=== PATIENT | female | born 1995 | race African-American/Black ===

== ENCOUNTER 2018-12-27 05:40 | Inpatient (IN) | payer BC ==
[~2018-12-27] VITALS: Ht 175.3 cm; Wt 88.0 kg
[~2018-12-27 05:40] MED LIST: EXPECTA PRENAT1 EACH PO; PEPCID20 MG PO
--- NOTE | 2018-12-27 12:22 | PR ---
[facility] [address] [place], [place] [address] Signed Progress Notes IP Datetime Report Generated by CPN: 12/27/2018 12:21 PROGRESS NOTES: [id number] Impression: Normal progression of labor Procedures: Artificial ROM Plan: Continue present management; Anesthesia consult Informed Consent Obtain: Vaginal Delivery; Risks, Benefits and Alternatives Discussed VITAL SIGNS: [id number] Vital Signs: Reviewed; Within Normal Limits EXAM: [id number] Dilatation: 4.0 Effacement: 70 Station: -2 Uterine Contractions: irregular MEMBRANES: [id number] Membrane Status: Intact Comments: Doing well. Epidural prn. Fetus A: [id number] FHR Baseline: 140 Variability: Moderate 6-25bpm Accelerations: 15X15 Decelerations: None FHR Category: Category I Presentation: Vertex Comments on Fetus A: No evidence of metabolic acidosis Fetus B: [id number] Signing Physician: Desirae Worrell MD Copies: ~ *Electronically Signed* 12/27/18 1221 DESIRAE WORRELL MD PATIENT NAME: JAYSON SYLVESTER PROGRESS NOTE DATE OF : 93 PHYSICIAN: DESIRAE WORRELL MD RPT #: [id number] REPORT IS CONFIDENTIAL AND NOT TO BE RELEASED WITHOUT AUTHORIZATION
--- NOTE | 2018-12-27 17:16 | PR ---
[facility] [address] [place], [place] [address] Signed Progress Notes IP Datetime Report Generated by DIAMOND: 12/27/2018 17:16 PROGRESS NOTES: [id number] Impression: Slow Progression of Labor Procedures: Intrauterine Pressure Catheter; Scalp Electrode Plan: Continue present management Informed Consent Obtain: Vaginal Delivery; Risks, Benefits and Alternatives Discussed VITAL SIGNS: [id number] Vital Signs: Reviewed; Within Normal Limits EXAM: [id number] Dilatation: 5.0 Effacement: 80 Station: -2 Uterine Contractions: q 2 to 3 min MEMBRANES: [id number] Membrane Status: Intact ROM Note: Addendum: AROM with small amount of clear fluid Comments: Slow progress. Will place IUPC and FSE and increase pit as needed. Will proceed with more aggressive position changes as well. Fetus A: [id number] FHR Baseline: 130 Variability: Moderate 6-25bpm Accelerations: 15X15 Decelerations: Variable FHR Category: Category II Presentation: Vertex Comments on Fetus A: reassuring with mod variability and accels Fetus B: [id number] Signing Physician: Desirae Worrell MD Copies: ~ *Electronically Signed* 12/27/18 1716 DESIRAE WORRELL MD PATIENT NAME: JAYSON SYLVESTER PROGRESS NOTE DATE OF : 93 PHYSICIAN: DESIRAE WORRELL MD RPT #: [id number] REPORT IS CONFIDENTIAL AND NOT TO BE RELEASED WITHOUT AUTHORIZATION
--- NOTE | 2018-12-27 17:53 | PR ---
[facility] [address] [facility] [place], [place] [address] Signed Progress Notes IP Datetime Report Generated by CPN: 12/27/2018 17:52 PROGRESS NOTES: [id number] Impression: Normal progression of labor Procedures: Sterile Vag Exam Plan: Anesthesia consult Informed Consent Obtain: Vaginal Delivery; Risks, Benefits and Alternatives Discussed VITAL SIGNS: [id number] Vital Signs: Reviewed; Within Normal Limits EXAM: [id number] Dilatation: 7.0 Effacement: 90 Station: -2 Uterine Contractions: q 2 to 3 min MEMBRANES: [id number] Membrane Status: Intact ROM Note: Addendum: AROM with small amount of clear fluid Comments: Has window from epidural. Will rebolus. She is in a much better labor pattern at this time. Fetus A: [id number] FHR Baseline: 140 Variability: Moderate 6-25bpm Accelerations: 15X15 Decelerations: Variable FHR Category: Category II Presentation: Vertex Comments on Fetus A: good variability with accels--reassuring Fetus B: [id number] Signing Physician: Desirae Worrell MD Copies: ~ *Electronically Signed* 12/27/18 1231 DESIRAE WORRELL MD PATIENT NAME: JAYSON SYLVESTER PROGRESS NOTE DATE OF : 93 PHYSICIAN: DESIRAE WORRELL MD RPT #: [id number] REPORT IS CONFIDENTIAL AND NOT TO BE RELEASED WITHOUT AUTHORIZATION
--- NOTE | 2018-12-28 09:59 | PR ---
[facility] [address] [facility] [place], [place] [address] Signed PP Progress Notes Datetime Report Generated by CPN: 12/28/2018 09:58 SUBJECTIVE: [id number] Pain: Within normal limits Vital Signs: [id number] Vital Signs: Reviewed; Within Normal Limits EXAM: [id number] Cardiovascular: Not Done Respiratory: Not Done Abdomen/Uterus: Abnormal Lochia: Normal Vulva/Perineum: Not Done Breasts: Not Done CVA Tenderness: Not Done Extremities: Normal Incision: Not Applicable Progress: Normal Exam Comments: Fundus firm, NT @ U-2. H/H 11.9/35.7, WBC 8.8, plat 128k IMPRESSION/PLAN/PROCEDURES: [id number] Impression: Normal progression Plan: Discharge Procedures: [place]ogam Progress Notes: Doing well. She desires D/C today. Signing Physician: Desirae Worrell MD Copies: ~ *Electronically Signed* 12/28/18 0958 DESIRAE WORRELL MD PATIENT NAME: JAYSON SYLVESTER PROGRESS NOTE DATE OF : 93 PHYSICIAN: DESIRAE WORRELL MD RPT #: [id number] REPORT IS CONFIDENTIAL AND NOT TO BE RELEASED WITHOUT AUTHORIZATION
== END 2018-12-28 19:00 | disposition home or self-care (01) | DRG 768 ==
LOC: FBCO → FBC 10:30
PROVIDERS: ADMIT Obstetrics & Gynecology
PROC: 10E0XZZ Delivery of Products of Conception, External Approach (ICD-10-PCS; principal; 2018-12-27)
PROC: 0UQG0ZZ Repair Vagina, Open Approach (ICD-10-PCS; 2018-12-27)
PROC: 0UQMXZZ Repair Vulva, External Approach (ICD-10-PCS; 2018-12-27)
PROC: 10907ZC Drainage of Amniotic Fluid, Therapeutic from Products of Conception, Via Natural or Artificial Opening (ICD-10-PCS; 2018-12-27)
PROC: 10H07YZ Insertion of Other Device into Products of Conception, Via Natural or Artificial Opening (ICD-10-PCS; 2018-12-27)
PROC: 00HU33Z Insertion of Infusion Device into Spinal Canal, Percutaneous Approach (ICD-10-PCS; 2018-12-27)
PROC: 3E0R3BZ Introduction of Anesthetic Agent into Spinal Canal, Percutaneous Approach (ICD-10-PCS; 2018-12-27)
PROC: 3E0234Z Introduction of Serum, Toxoid and Vaccine into Muscle, Percutaneous Approach (ICD-10-PCS; 2018-12-28)
DX: O69.82X0 Labor and delivery complicated by other cord entanglement, without compression, not applicable or unspecified (principal); Z37.0 Single live birth; O71.4 Obstetric high vaginal laceration alone; O76 Abnormality in fetal heart rate and rhythm complicating labor and delivery; O26.893 Other specified pregnancy related conditions, third trimester; Z67.11 Type A blood, Rh negative; O71.82 Other specified trauma to perineum and vulva; Z86.59 Personal history of other mental and behavioral disorders; O99.62 Diseases of the digestive system complicating childbirth; K21.9 Gastro-esophageal reflux disease without esophagitis; Z79.899 Other long term (current) drug therapy; Z3A.40 40 weeks gestation of pregnancy
CPT/HCPCS: 36415; 59025; 83030; 85027; 86850; 86900; 86901; 99213; J2590; J2790; J2795; J3010; J7120

== ENCOUNTER 2022-11-21 23:29 | Inpatient (IN) | payer BC, OTHER ==
[2022-11-22 02:17] VITALS: BP 129/70
--- NOTE | 2022-11-23 09:05 | PR ---
[facility] [address] [facility] [place], [place] [address] Signed PP Progress Notes Datetime Report Generated by DIAMOND: 11/23/2022 09:05 SUBJECTIVE: [id number] Pain: Within Normal Limits Vital Signs: [id number] Vital Signs: Reviewed; Within Normal Limits Cardiovascular: Not Done Respiratory: Not Done Abdomen/Uterus: Abnormal Lochia: Normal Vulva/Perineum: Not Done Breasts: Not Done CVA Tenderness: Not Done Extremities: Normal Incision: Not Applicable Progress: Normal Exam Comments: Fundus firm NT @ U-1. H/H 04/24.7, WBC 6.1, plat 120k IMPRESSION/PLAN/PROCEDURES: [id number] Impression: Normal Progression Plan: Discharge Procedures: None Progress Notes: Doing well. Anemia which is well tolerated. She is ready for D/C. Signing Physician: Desirae Worrell MD Copies: ~ *Electronically Signed* 11/23/22 09 DESIRAE WORRELL MD PATIENT NAME: JAYSON SYLVESTER PROGRESS NOTE DATE OF : 93 PHYSICIAN: DESIRAE WORRELL MD RPT #: [id number] REPORT IS CONFIDENTIAL AND NOT TO BE RELEASED WITHOUT AUTHORIZATION
== END 2022-11-23 10:45 | disposition home or self-care (01) | DRG 807 ==
LOC: FBCO 23:29 → FBC 11-22 00:30
PROVIDERS: ADMIT Obstetrics & Gynecology; ATTEND Obstetrics & Gynecology
PROC: 10E0XZZ Delivery of Products of Conception, External Approach (ICD-10-PCS; principal; 2022-11-22)
PROC: 00HU33Z Insertion of Infusion Device into Spinal Canal, Percutaneous Approach (ICD-10-PCS; 2022-11-22)
PROC: 3E0R3BZ Introduction of Anesthetic Agent into Spinal Canal, Percutaneous Approach (ICD-10-PCS; 2022-11-22)
PROC: 3E0334Z Introduction of Serum, Toxoid and Vaccine into Peripheral Vein, Percutaneous Approach (ICD-10-PCS; 2022-11-22)
DX: O26.893 Other specified pregnancy related conditions, third trimester (principal); Z37.0 Single live birth; D64.9 Anemia, unspecified; O48.0 Post-term pregnancy; O99.02 Anemia complicating childbirth; Z67.11 Type A blood, Rh negative; Z3A.40 40 weeks gestation of pregnancy
CPT/HCPCS: 01960; 36415; 83030; 85025; 85027; 86850; 86880; 86900; 86901; A9270; J2590; J2790; J7121

== ENCOUNTER 2024-07-02 11:29 | Emergency (ER) | payer OTHER ==
[~2024-07-02] VITALS: Ht 182.9 cm; Wt 65.8 kg
[2024-07-02] MEDS ORDERED: PROMETHAZINE HCL 25 MG TAB PO ONE (12:15)
[2024-07-02] MEDS ORDERED: ACETAMINOPHEN 500 MG TAB PO ONE (12:15)
[2024-07-02] MEDS ORDERED: PROMETHAZINE HC25 M1 PO (13:39)
[2024-07-02 13:45] VITALS: BP 125/77
== END 2024-07-02 13:45 | disposition home or self-care (01) ==
LOC: ED 11:29
DX: O9A.211 Injury, poisoning and certain other consequences of external causes complicating pregnancy, first trimester (principal); S33.5XXA Sprain of ligaments of lumbar spine, initial encounter; O20.0 Threatened abortion; Z3A.01 Less than 8 weeks gestation of pregnancy; W20.8XXA Other cause of strike by thrown, projected or falling object, initial encounter; Y93.23 Activity, snow (alpine) (downhill) skiing, snowboarding, sledding, tobogganing and snow tubing
CPT/HCPCS: 36415; 76801; 76817; 84702; 99284-25; A9270

== ENCOUNTER 2024-09-11 14:59 | Emergency (ER) | payer OTHER ==
[~2024-09-11] VITALS: Ht 182.9 cm; Wt 71.9 kg
[~2024-09-11 14:59] MED LIST changes: +PROMETHAZINE HC25 M1 PO
--- OUTSIDE RECORDS SUMMARY | 2024-09-11 15:06 | XMS ---
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 Luis Antonio VISIT COUNT (12 MO.) [address] TOTAL 4 NOTE: Visits indicate total known visits. ED/UCC VISIT TRACKING (12 MO.) 09/11/2024 15:00 [facility] TYPE: Emergency COMPLAINT: - VAGINAL BLEEDING/CRAMPING/16 WEEKS 08/22/2024 16:35 [facility] TYPE: Emergency DIAGNOSES: - Antepartum hemorrhage, unspecified, second trimester - GENERAL - VAGINAL PROBLEM 08/19/2024 20:10 [facility] TYPE: Emergency DIAGNOSES: - Antepartum hemorrhage, unspecified, unspecified trimester - VAGINAL BLEEDING 07/02/2024 11:[address] [facility] TYPE: Emergency COMPLAINT: - FALL DIAGNOSES: - Activity, snow (alpine) (downhill) skiing, snowboarding, sledding, tobogganing and snow tubing - Injury, poisoning and certain other consequences of external causes complicating , first trimester - Less than 8 weeks gestation of - Other cause of strike by thrown, projected or falling object, initial encounter - Sprain of ligaments of lumbar spine, initial encounter - Threatened INPATIENT VISIT TRACKING (12 MO.) No inpatient visits to display in this time frame [email or web address]
[2024-09-11 17:01] VITALS: BP 124/68
== END 2024-09-11 17:03 | disposition home or self-care (01) ==
LOC: ED 14:59
DX: O46.8X2 Other antepartum hemorrhage, second trimester (principal); Z3A.16 16 weeks gestation of pregnancy
CPT/HCPCS: 99283

== ENCOUNTER 2025-02-18 09:00 | Inpatient (IN) | payer OTHER ==
[~2025-02-18] VITALS: Ht 175.3 cm; Wt 82.6 kg
[~2025-02-18 09:00] MED LIST changes: +FEROSUL325 MG PO
[2025-02-18 09:41] LABS: AMNISURE ROM TEST NEGATIVE
[2025-02-18] MEDS ORDERED: LIDOCAINE HCL 1% 30 ML SDV INJ PRN (10:45)
[2025-02-18] MEDS ORDERED: CALCIUM CARBONATE 500 MG CHEW PO PRN ×2 (10:45→20:00)
[2025-02-18] MEDS ORDERED: TERBUTALINE SULFATE 1 MG/ML AMP SUB-Q PRN (10:45)
[2025-02-18] MEDS ORDERED: MAGNESIUM HYDROXIDE/AL HYDROX 30 ML CUP PO PRN ×2 (10:45→20:00)
[2025-02-18 11:07] LABS: MCH 29.0 PG (25.6-32.2); MCHC 32.2 g/dL (32.2-35.5); MCV 90.0 fL (79.4-94.8); RBC 4.1 M/uL (3.93-5.22)
[2025-02-18 11:30] LABS: AMPHETAMINES, URINE NEGATIVE (NEGATIVE); BARBITURATES, URINE NEGATIVE (NEGATIVE); BENZODIAZEPINE, URINE NEGATIVE (NEGATIVE); CANNABINOID, URINE NEGATIVE (NEGATIVE); COCAINE, URINE NEGATIVE (NEGATIVE); ECSTASY, URINE NEGATIVE (NEGATIVE); FENTANYL, URINE NEGATIVE (NEGATIVE); METHADONE, URINE NEGATIVE (NEGATIVE); OPIATES, URINE NEGATIVE (NEGATIVE); OXYCODONE, URINE NEGATIVE (NEGATIVE); PHENCYCLIDINE, URINE NEGATIVE (NEGATIVE)
[2025-02-18 11:35] VITALS: BP 143/87
[2025-02-18] MEDS ORDERED: ROPIVACAINE 0.2% 200 ML BAG ONE (11:47)
[2025-02-18] MEDS ORDERED: Ropivacaine HCl 20 MG/10 ML AMP ONE (11:47)
[2025-02-18] MEDS ORDERED: OXYTOCIN/0.9 % SODIUM CHLORIDE 30 UNITS/500 ML BAG IV SCH (12:00)
[2025-02-18 12:04] LABS: ABO A; ANTIBODY SCREEN POSITIVE; RH NEGATIVE
[2025-02-18 12:15] LABS: ANTIBODY IDENTIFICATION ANTI-D
[2025-02-18] MEDS ORDERED: LACTATED RINGER'S 1,000 ML IV SCH (14:15)
[2025-02-18] MEDS ORDERED: IBUPROFEN 600 MG TAB PO PRN (20:00)
[2025-02-18] MEDS ORDERED: OXYTOCIN/0.9 % SODIUM CHLORIDE 500 ML IV SCH (20:00)
[2025-02-18] MEDS ORDERED: MAGNESIUM HYDROXIDE 30 ML UDC PO PRN (20:00)
[2025-02-18] MEDS ORDERED: BENZOCAINE 60 ML AEROSOL TOP PRN (20:00)
[2025-02-18] MEDS ORDERED: HYDROCORTISONE ACETATE 25 MG SUPP PR PRN (20:00)
[2025-02-18] MEDS ORDERED: WITCH HAZEL/GLYCERIN 1 EA PAD TOP PRN (20:00)
[2025-02-18] MEDS ORDERED: ACETAMINOPHEN 325 MG TAB PO PRN (20:00)
[2025-02-18] MEDS ORDERED: SENNOSIDES/DOCUSATE 1 EA TAB PO SCH (21:00)
[2025-02-19 06:13] LABS: ABO A; ANTIBODY SCREEN NEGATIVE; FETAL HEMOGLOBIN SCREEN NEGATIVE; RH NEGATIVE; RHIG STATUS CANDIDATE
--- NOTE | 2025-02-19 09:09 | PR ---
[facility] [address] [facility] [place], [place] [address] Signed PP Progress Notes Datetime Report Generated by CPN: 02/19/2025 09:09 SUBJECTIVE: [id number] Pain: Within Normal Limits Nausea/Vomiting: Denies Flatus: Yes Vital Signs: [id number] Vital Signs: Reviewed; Within Normal Limits Cardiovascular: Not Done Respiratory: Not Done Abdomen/Uterus: Normal Lochia: Normal Vulva/Perineum: Normal Breasts: Normal CVA Tenderness: Not Done Extremities: Normal Incision: Not Applicable Progress: Normal IMPRESSION/PLAN/PROCEDURES: [id number] Impression: Normal Progression Procedures: None Progress Notes: Recovering well. Desires D/C. Pain and bleeding wNL. Signing Physician: Lynne Rinaldi MD Copies: ~ *Electronically Signed* 02/19/25 0909 LYNNE RINALDI MD PATIENT NAME: JAYSON SYLVESTER PROGRESS NOTE DATE OF : 93 PHYSICIAN: LYNNE RINALDI MD RPT #: [id number] REPORT IS CONFIDENTIAL AND NOT TO BE RELEASED WITHOUT AUTHORIZATION
[2025-02-19 21:37] LABS: RHIG DOSE 1
== END 2025-02-19 19:23 | disposition home or self-care (01) | DRG 807 ==
LOC: FBCO 09:00 → FBC 10:35 → FBCO 16:00 → FBC 02-19 19:23
PROVIDERS: Nurse Practitioner Obstetrics & Gynecology; ADMIT Obstetrics & Gynecology; ATTEND Obstetrics & Gynecology
PROC: 10E0XZZ Delivery of Products of Conception, External Approach (ICD-10-PCS; principal; 2025-02-18)
PROC: 10907ZC Drainage of Amniotic Fluid, Therapeutic from Products of Conception, Via Natural or Artificial Opening (ICD-10-PCS; 2025-02-18)
PROC: 0HQ9XZZ Repair Perineum Skin, External Approach (ICD-10-PCS; 2025-02-18)
PROC: 4A1HXCZ Monitoring of Products of Conception, Cardiac Rate, External Approach (ICD-10-PCS; 2025-02-18)
DX: O69.81X0 Labor and delivery complicated by cord around neck, without compression, not applicable or unspecified (principal); Z37.0 Single live birth; Z3A.39 39 weeks gestation of pregnancy; O70.0 First degree perineal laceration during delivery
CPT/HCPCS: 36415; 59025; 80307; 83030; 84112; 85027; 86850; 86870; 86900; 86901; A9270; G0463; J2790; J7121